=== PATIENT | female | born 1940 | race African-American/Black ===

== ENCOUNTER 2017-12-24 18:24 | Inpatient (IN) | payer MEDICARE ==
[~2017-12-24] VITALS: Ht 165.1 cm; Wt 85.4 kg
[2017-12-24 18:37] VITALS: BP 154/72
[2017-12-24 18:59] LABS: BASO # 0.1 10*3/uL (0.0-0.1); BASO % 0.6 % (0.0-1.0); EOS # 0.7 10*3/uL (0.0-0.4); EOS % 7.8 % (1.0-4.0); HEMATOCRIT 41.2 % (37.0-47.0); HEMOGLOBIN 12.9 g/dl (12.0-16.0); LYMPH # 1.7 10*3/uL (1.3-4.4); LYMPH % 19.6 % (27.0-41.0); MEAN CELL VOLUME 95.6 fl (81.0-99.0); MEAN CORPUSCULAR HGB 29.9 pg (27.0-31.0); MEAN CORPUSCULAR HGB CONC 31.3 g/dl (33.0-37.0); MEAN PLATELET VOLUME 9.2 fl (9.6-12.3); MONO # 0.7 10*3/uL (0.1-1.0); MONO % 8.3 % (3.0-9.0); NEUT # 5.5 10*3/uL (2.3-7.9); NEUT % 63.4 % (47.0-73.0); PLATELET COUNT AUTOMATED 257 10*3/uL (130-400); RED BLOOD COUNT 4.31 10*6/uL (4.10-5.10); WHITE BLOOD COUNT 8.7 10*3/uL (4.8-10.8)
[2017-12-24 19:09] LABS: ACT PARTIAL THROMBO TIME 24.7 SECONDS (20.8-31.5)
[2017-12-24 19:19] LABS: ALBUMIN 3.7 gm/dl (3.1-4.5); ALKALINE PHOSPHATASE 102 U/L (45-117); BUN 22 mg/dl (7-24); CHLORIDE 104 mmol/L (98-107); SGOT/AST 26 IU/L (3-35); SGPT/ALT 28 U/L (12-78); SODIUM 145 mmol/L (136-145); TOTAL PROTEIN 7.4 gm/dL (6.4-8.2)
[2017-12-24 19:21] LABS: TROPONIN I < 0.015 ng/ml (<0.045)
[2017-12-24 19:56] VITALS: BP 146/57
[2017-12-24 21:00] VITALS: BP 154/73
[2017-12-25] VITALS: BP 109/46
[2017-12-25 06:53] LABS: BASO # 0.1 10*3/uL (0.0-0.1); BASO % 0.9 % (0.0-1.0); EOS # 0.7 10*3/uL (0.0-0.4); EOS % 8.2 % (1.0-4.0); HEMATOCRIT 42.2 % (37.0-47.0); HEMOGLOBIN 13.1 g/dl (12.0-16.0); LYMPH # 1.5 10*3/uL (1.3-4.4); LYMPH % 17.6 % (27.0-41.0); MEAN CORPUSCULAR HGB 30.1 pg (27.0-31.0); MEAN PLATELET VOLUME 9.5 fl (9.6-12.3); MONO # 0.7 10*3/uL (0.1-1.0); NEUT # 5.3 10*3/uL (2.3-7.9); NEUT % 64.1 % (47.0-73.0); PLATELET COUNT AUTOMATED 254 10*3/uL (130-400); RED BLOOD COUNT 4.35 10*6/uL (4.10-5.10); WHITE BLOOD COUNT 8.2 10*3/uL (4.8-10.8)
[2017-12-25 07:25] LABS: BUN 18 mg/dl (7-24); CHLORIDE 102 mmol/L (98-107); CHOLESTEROL 178 mg/dL (<200); CREATININE 0.63 mg/dL (0.55-1.02); HDL CHOLESTEROL 97 mg/dl (40-60); LDL CHOLESTEROL 72 mg/dL (9-159); SODIUM 142 mmol/L (136-145); TRIGLYCERIDES 45 mg/dl (<150); VLDL CHOLESTEROL 9 mg/dL (6-40)
[2017-12-25 08:00] VITALS: BP 138/57
== END 2017-12-25 09:59 | disposition left against medical advice (07) | DRG 313 ==
LOC: ED 18:24 → EDHOLD 20:15 → 4E 20:15
PROVIDERS: Emergency Medicine; Internal Medicine Nephrology
DX: R07.9 Chest pain, unspecified (principal); J44.9 Chronic obstructive pulmonary disease, unspecified; E83.41 Hypermagnesemia; M19.90 Unspecified osteoarthritis, unspecified site; D72.810 Lymphocytopenia; R73.9 Hyperglycemia, unspecified; E66.09 Other obesity due to excess calories; Z96.642 Presence of left artificial hip joint; Z82.49 Family history of ischemic heart disease and other diseases of the circulatory system; Z80.42 Family history of malignant neoplasm of prostate; Z87.891 Personal history of nicotine dependence; Z85.51 Personal history of malignant neoplasm of bladder; Z85.3 Personal history of malignant neoplasm of breast; Z90.12 Acquired absence of left breast and nipple; Z84.89 Family history of other specified conditions; Z68.31 Body mass index [BMI] 31.0-31.9, adult